=== PATIENT | female | born 1960 | race Caucasian/White ===

== ENCOUNTER 2016-11-15 07:13 | Emergency (ER) | payer BC ==
[2016-11-15 07:31] VITALS: BP 157/76
--- NOTE | 2016-11-15 07:57 | UC ---
Skin Complaint HPI - HPI Summary HPI Summary: Skin rash for the past few days under belly fold and left inguinal canal. DM has bee in the range of 160s. no fever or chills. it is itchy and tender. - History of Current Complaint Chief Complaint: UCSkin Time Seen by Provider: 11/15/16 07:40 Stated Complaint: SKIN COMPLAINT Hx Obtained From: Patient Hx Last Menstrual Period: 2007 Onset/Duration: Gradual Onset Skin Exposure Onset/Duration: Days Ago Onset Severity: Mild Current Severity: Moderate Location: Discrete Character: Pruritus, Pain Aggravating: Wet Conditions, Humidity, Touch Associated Signs & Symptoms: Positive: Rash. Negative: Nausea, Vomiting, Numbness, Diaphoresis, Weakness, Shivering, Fever, Red Streaks, Joint Swelling Related History: Diabetes - Allergy/Home Medications Allergies/Adverse Reactions: Allergies Allergy/AdvReac Type Severity Reaction Status Date / Time No Known Allergies Allergy Verified 11/15/16 07:20 Home Medications: Home Medications Cholecalciferol TAB* [Vitamin D TAB*] 1,000 unit PO DAILY 11/15/16 [History Confirmed 11/15/16] Homeopathic Products [Azo Yeast Plus] 1 tab PO 11/15/16 [History] Review of Systems All Other Systems Reviewed And Are Negative: Yes PMH/Surg Hx/FS Hx/Imm Hx Endocrine History Of: Reports: Diabetes, Dyslipidemia Denies: Thyroid Disease, Hyperthyroidism, Hypothyroidism Cardiovascular History Of: Reports: Hypertension Denies: Cardiac Disorders, Pacemaker/ICD, Myocardial Infarction, Congestive Heart Failure, Atrial Fibrillation, Deep Vein Thrombosis, Bleeding Disorders Respiratory History Of: Reports: Asthma Denies: COPD GI/ History Of: Reports: Gastroesophageal Reflux Denies: Ulcer, Gastrointestinal Bleed, Gall Bladder Disease, Kidney Stones, Diverticulitis, Renal Disease, Urosepsis Neurological History Of: Denies: TIA, CVA, Dementia, Seizures, Migraine Psychological History Of: Denies: Anxiety, Depression, Bipolar Disorder, Schizophrenia, Post Traumatic Stress Disorder Cancer History Of: Reports: Breast Cancer Denies: Lung Cancer, Colorectal Cancer, Prostate Cancer, Cervical Cancer Other History Of: Negative For: HIV, Hepatitis B, Hepatitis C, Anticoagulant Therapy - Surgical History Surgical History: Yes Surgery Procedure, Year, and Place: bilateral mastectomy 07/2007, right carpal tunnel, vein stripping left leg - Family History Known Family History: Positive: None - Social History Alcohol Use: None Substance Use Type: None Smoking Status (MU): Current Every Day Smoker Type: Cigarettes Amount Used/How Often: 1 1/2 ppd Household Exposure Type: Cigarettes - Immunization History Most Recent Influenza Vaccination: 2016 Most Recent Tetanus Shot: unk Most Recent Pneumonia Vaccination: none Physical Exam Triage Information Reviewed: Yes Appearance: Well-Appearing, No Pain Distress, Obese Vital Signs: Initial Vital Signs Temp 97.8 F 11/15/16 07:23 Pulse 94 11/15/16 07:23 Resp 18 11/15/16 07:23 BP 157/76 11/15/16 07:23 Pulse Ox 98 11/15/16 07:23 Vital Signs Reviewed: Yes Eye Exam: Normal Eyes: Positive: Conjunctiva Clear. Negative: Conjunctiva Inflamed ENT Exam: Normal Neck exam: Normal Neck: Positive: Supple, Nontender. Negative: No Lymphadenopathy Respiratory Exam: Normal Respiratory: Positive: Chest non-tender, Lungs clear, Normal breath sounds, No respiratory distress, No accessory muscle use. Negative: Respiratory distress Cardiovascular Exam: Normal Cardiovascular: Positive: RRR, No Murmur, Pulses Normal Abdominal Exam: Normal Abdomen Description: Positive: Nontender, No Organomegaly, Soft Musculoskeletal: Positive: Strength Intact, ROM Intact, No Edema Neurological Exam: Normal Neurological: Positive: Alert, Muscle Tone Normal. Negative: Fatigued Psychological Exam: Normal Psychological: Positive: Normal Response To Family Skin: Positive: rashes - under abd fold and L inguinal canal pink symmetric rash non raised. no streaking or induration. Course/Dx - Diagnoses Provider Diagnoses: fungal skin rash. Discharge - Discharge Plan Condition: Good Disposition: HOME Prescriptions: Fluconazole 100 MG TAB* [Diflucan 100 MG TAB*] 100 mg PO DAILY #3 tab Nystatin CREAM* [Nystatin Cream*] 1 applic TOPICAL TID #15 tube Patient Education Materials: Antifungals (On the skin) Referrals: Brady Hicks [Primary Care Provider] - 2 Days
== END 2016-11-15 08:00 | disposition home or self-care (01) ==
LOC: UCCORT 07:13
DX: B35.9 Dermatophytosis, unspecified (principal); E11.9 Type 2 diabetes mellitus without complications; E78.5 Hyperlipidemia, unspecified; I10 Essential (primary) hypertension; J45.909 Unspecified asthma, uncomplicated; K21.9 Gastro-esophageal reflux disease without esophagitis; Z85.3 Personal history of malignant neoplasm of breast; F17.210 Nicotine dependence, cigarettes, uncomplicated
CPT/HCPCS: 99212; G0463

== ENCOUNTER 2016-12-05 14:40 | Emergency (ER) | payer BC ==
[2016-12-05 15:32] VITALS: BP 144/74
--- NOTE | 2016-12-05 15:56 | UC ---
Throat Pain/Nasal Yunier HPI - HPI Summary HPI Summary: ONE WEEK OF CONGESTION. SORE THROAT, EAR ACHE SINUS PRESSURE WORSE SINCE YESTERDAY. NO FEVER. - History of Current Complaint Chief Complaint: UCGeneralIllness Stated Complaint: SORE THROAT,FEVER Time Seen by Provider: 12/05/16 15:30 Hx Obtained From: Patient Hx Last Menstrual Period: 2007 Onset/Duration: Gradual Onset, Lasting Days, Worse Since - YESTERDAY Severity: Moderate Pain Intensity: 7 Pain Scale Used: 0-10 Numeric Cough: Productive Associated Signs & Symptoms: Positive: Hoarseness, Sinus Discomfort, Nasal Discharge - Epiglottits Risk Factors Epiglottis Risk Factors: Negative - Allergies/Home Medications Allergies/Adverse Reactions: Allergies Allergy/AdvReac Type Severity Reaction Status Date / Time No Known Allergies Allergy Verified 12/05/16 15:32 PMH/Surg Hx/FS Hx/Imm Hx Previously Healthy: Yes Endocrine History Of: Reports: Diabetes, Dyslipidemia Denies: Thyroid Disease, Hyperthyroidism, Hypothyroidism Cardiovascular History Of: Reports: Hypertension Denies: Cardiac Disorders, Pacemaker/ICD, Myocardial Infarction, Congestive Heart Failure, Atrial Fibrillation, Deep Vein Thrombosis, Bleeding Disorders Respiratory History Of: Reports: Asthma Denies: COPD GI/ History Of: Reports: Gastroesophageal Reflux Denies: Ulcer, Gastrointestinal Bleed, Gall Bladder Disease, Kidney Stones, Diverticulitis, Renal Disease, Urosepsis Neurological History Of: Denies: TIA, CVA, Dementia, Seizures, Migraine Psychological History Of: Denies: Anxiety, Depression, Bipolar Disorder, Schizophrenia, Post Traumatic Stress Disorder Cancer History Of: Reports: Breast Cancer Denies: Lung Cancer, Colorectal Cancer, Prostate Cancer, Cervical Cancer Other History Of: Negative For: HIV, Hepatitis B, Hepatitis C, Anticoagulant Therapy - Surgical History Surgical History: Yes Surgery Procedure, Year, and Place: bilateral mastectomy 07/2007, right carpal tunnel, vein stripping left leg - Family History Known Family History: Positive: None - Social History Occupation: Employed Full-time Lives: With Family Alcohol Use: None Substance Use Type: None Smoking Status (MU): Current Every Day Smoker Type: Cigarettes Amount Used/How Often: 1 1/2 ppd Household Exposure Type: Cigarettes Cessation Counseling: Patient Advised to Stop - Immunization History Most Recent Influenza Vaccination: 2015 Most Recent Tetanus Shot: unk Most Recent Pneumonia Vaccination: none Review of Systems Constitutional: Negative Skin: Negative ENT: Sore Throat, Ear Ache, Nasal Discharge Respiratory: Negative Cardiovascular: Negative Gastrointestinal: Negative Genitourinary: Negative Motor: Negative Neurovascular: Negative Musculoskeletal: Negative Neurological: Negative Psychological: Negative All Other Systems Reviewed And Are Negative: Yes Physical Exam Triage Information Reviewed: Yes Appearance: No Pain Distress, Well-Nourished, Ill-Appearing Vital Signs: Initial Vital Signs Temp 97.5 F 12/05/16 15:28 Pulse 109 12/05/16 15:28 Resp 16 12/05/16 15:28 BP 144/74 12/05/16 15:28 Pulse Ox 95 12/05/16 15:28 Vital Signs Reviewed: Yes Eye Exam: Normal ENT: Positive: Hearing grossly normal, Pharynx normal, TM bulging, TM dull, TM red Dental Exam: Normal Neck exam: Normal Neck: Positive: Supple, Nontender, No Lymphadenopathy Respiratory Exam: Normal Respiratory: Positive: Chest non-tender, Lungs clear, Normal breath sounds, No respiratory distress, No accessory muscle use Cardiovascular Exam: Normal Cardiovascular: Positive: RRR, No Murmur, Pulses Normal, Brisk Capillary Refill Abdominal Exam: Normal Abdomen Description: Positive: Nontender, No Organomegaly Musculoskeletal Exam: Normal Neurological Exam: Normal Psychological Exam: Normal Skin Exam: Normal Throat Pain/Nasal Course/Dx - Differential Dx/Diagnosis Differential Diagnosis/HQI/PQRI: Pharyngitis, Sinusitis, Tonsillitis, URI Provider Diagnoses: SINUSITIS Discharge - Discharge Plan Condition: Stable Disposition: HOME Prescriptions: Amoxicillin/Clavulanate TAB* [Augmentin TAB 875*] 875 mg PO BID #20 tab Patient Education Materials: Pharyngitis (ED), Sinusitis (ED) Forms: *Work Release Referrals: Brady Hicks [Primary Care Provider] -
== END 2016-12-05 15:51 | disposition home or self-care (01) ==
LOC: UCCORT 14:40
DX: J32.9 Chronic sinusitis, unspecified (principal); E11.9 Type 2 diabetes mellitus without complications; E78.5 Hyperlipidemia, unspecified; I10 Essential (primary) hypertension; J45.909 Unspecified asthma, uncomplicated; K21.9 Gastro-esophageal reflux disease without esophagitis; Z85.3 Personal history of malignant neoplasm of breast; Z90.13 Acquired absence of bilateral breasts and nipples; F17.210 Nicotine dependence, cigarettes, uncomplicated
CPT/HCPCS: 99212; G0463

== ENCOUNTER 2018-08-27 09:10 | Emergency (ER) | payer BC ==
[2018-08-27 11:44] VITALS: BP 129/65
--- NOTE | 2018-08-27 11:59 | UC ---
Throat Pain/Nasal Yunier HPI - HPI Summary HPI Summary: 58-year-old female presents with 4 day history of sore throat, mild nasal congestion, bilateral ear pain, and occasional nonproductive cough. States she was treated approximately 2 weeks ago for a bilateral ear infection with a ten- day course of Augmentin. Denies fever, chills, dysphagia, chest pain, shortness of breath, nausea, vomiting, or diarrhea. - History of Current Complaint Chief Complaint: UCGeneralIllness Stated Complaint: ST,SPOTS IN THROAT Time Seen by Provider: 08/27/18 11:39 Hx Obtained From: Patient Hx Last Menstrual Period: 2007 Pain Intensity: 6 - Allergies/Home Medications Allergies/Adverse Reactions: Allergies Allergy/AdvReac Type Severity Reaction Status Date / Time No Known Allergies Allergy Verified 08/27/18 11:37 Home Medications: Home Medications Ibuprofen TAB* [Motrin TAB* 800 MG] 800 mg PO Q6H PRN 08/27/18 [History Confirmed 08/27/18] glipiZIDE TAB* [Glucotrol TAB*] 5 mg PO DAILY 08/27/18 [History Confirmed ] PMH/Surg Hx/FS Hx/Imm Hx - Additional Past Medical History Additional PMH: Restless leg syndrome Endocrine History: Diabetes, Dyslipidemia Cardiovascular History: Hypertension Respiratory History: Asthma GI/ History: Gastroesophageal Reflux Cancer History: Breast Cancer Other History Of: Negative For: HIV, Hepatitis B, Hepatitis C, Anticoagulant Therapy - Surgical History Surgical History: Yes Surgery Procedure, Year, and Place: bilateral mastectomy 07/2007, right carpal tunnel, vein stripping left leg. tubal - Family History Known Family History: Positive: Hypertension, Diabetes - Social History Occupation: Employed Full-time Lives: Alone Alcohol Use: None Substance Use Type: None Smoking Status (MU): Current Every Day Smoker Type: Cigarettes Amount Used/How Often: 1 ppd Household Exposure Type: Cigarettes - Immunization History Most Recent Influenza Vaccination: not yet 2017 Most Recent Tetanus Shot: unk Most Recent Pneumonia Vaccination: none Review of Systems All Other Systems Reviewed And Are Negative: Yes Constitutional: Negative: Fever, Chills Skin: Negative: Rash Eyes: Negative: Drainage, Eye Redness ENT: Positive: Sore Throat, Ear Ache, Nasal Discharge. Negative: Sinus Congestion, Sinus Pain/Tenderness Respiratory: Positive: Cough. Negative: Shortness Of Breath Cardiovascular: Negative: Palpitations, Chest Pain Gastrointestinal: Negative: Abdominal Pain, Vomiting, Diarrhea, Nausea Musculoskeletal: Positive: Negative Neurological: Positive: Negative Is Patient Immunocompromised?: No Physical Exam - Summary Physical Exam Summary: GENERAL APPEARANCE: Well developed, obese, alert and cooperative, and appears to be in no acute distress. EYES: Conjunctiva clear. No drainage. Vision is grossly intact. EARS: External auditory canals and tympanic membranes clear, hearing grossly intact. NOSE: Mild nasal congestion. THROAT: Mild pharyngeal erythema with cobblestoning. No tonsilar inflammation, swelling, exudate, or lesions. NECK: Neck supple, non-tender without lymphadenopathy. CARDIAC: Normal S1 and S2. No S3, S4 or murmurs. Rhythm is regular. There is no peripheral edema, cyanosis or pallor. Extremities are warm and well perfused. Capillary refill is less than 2 seconds. LUNGS: Clear to auscultation without rales, rhonchi, wheezing or diminished breath sounds. ABDOMEN: Positive bowel sounds. Soft, nondistended, nontender. No guarding or rebound. No masses or hepatosplenomegally. MUSKULOSKELETAL: ROM intact to all extremities. No joint erythema or tenderness. Normal muscular development. Normal gait. SKIN: Skin normal color, texture and turgor with no lesions or eruptions. Triage Information Reviewed: Yes Vital Signs: Initial Vital Signs Temp 98.6 F 08/27/18 11:37 Pulse 99 08/27/18 11:37 Resp 18 08/27/18 11:37 BP 129/65 08/27/18 11:37 Pulse Ox 95 08/27/18 11:37 Vital Signs Reviewed: Yes Diagnostics - Laboratory Diagnostic Studies Completed/Ordered: Rapid strep negative. Throat Pain/Nasal Course/Dx - Course Course Of Treatment: 58-year-old female presents with 4 day history of sore throat, mild nasal congestion, bilateral ear pain, and occasional nonproductive cough. States she was treated approximately 2 weeks ago for a bilateral ear infection with a ten-day course of Augmentin. Denies fever, chills, dysphagia, chest pain, shortness of breath, nausea, vomiting, or diarrhea. Afebrile. Vital signs stable. Exam reveals dental female no acute distress with mild nasal congestion, normal bilateral TMs, mild pharyngeal erythema with cobblestoning, clear bilateral breath sounds, occasional dry nonproductive cough , and otherwise unremarkable exam. Rapid strep negative. Recommending symptomatic treatment for a viral upper respiratory infection. She is to follow -up with her primary care provider in 7 days if symptoms do not improve. Anticipatory guidance and warning symptoms were reviewed with the patient. Verbalizes understanding and agrees with plan of care. - Differential Dx/Diagnosis Differential Diagnosis/HQI/PQRI: Otitis Media, Peritonsillar Abscess, Pharyngitis, Sinusitis, Tonsillitis, URI Provider Diagnosis: Viral URI with cough Discharge - Sign-Out/Discharge Documenting (check all that apply): Patient Departure All imaging exams completed and their final reports reviewed: No Studies - Discharge Plan Condition: Stable Disposition: HOME Patient Education Materials: Upper Respiratory Infection (ED) Referrals: Brady Hicks [Primary Care Provider] - 7 Days (If no improvement in symptoms.) Additional Instructions: Your history and exam are consistent with a viral upper respiratory infection. Viral infections do not respond to antibiotics and are limited to the treatment of symptoms. Viral infections typically run their course in 7-10 days. Drink plenty of fluids to avoid dehydration especially if you are running any fever. Use a saline rinse kit such as Neti Pot or NeilMed at least twice a day to help thin secretions and promote drainage of the sinuses. Take over the counter acetaminophen (Tylenol) according to directions as needed for pain or fever. Use salt water gargles several times a day if you have a sore throat. You may also use Chloraseptic spray or Cepacol lonzenges according to directions which contain a numbing medication and can provide some temporary relief from your sore throat. Follow up with your primary care provider in 7 days if symptoms persist. Seek immediate medical attention in the emergency room if you have fever greater than 100.5 F despite taking acetaminophen or ibuprofen, have chest pain , difficulty breathing, are unable to swallow, or have any worsening of symptoms. - Billing Disposition and Condition Condition: STABLE Disposition: Home
== END 2018-08-27 12:13 | disposition home or self-care (01) ==
LOC: UCCORT 09:10
DX: J06.9 Acute upper respiratory infection, unspecified (principal); R05 Cough; E11.9 Type 2 diabetes mellitus without complications; I10 Essential (primary) hypertension; J45.909 Unspecified asthma, uncomplicated; H66.93 Otitis media, unspecified, bilateral; F17.210 Nicotine dependence, cigarettes, uncomplicated; Z79.84 Long term (current) use of oral hypoglycemic drugs
CPT/HCPCS: 87651; 99211; G0463

== ENCOUNTER 2018-08-30 09:43 | Emergency (ER) | payer BC ==
[2018-08-30 10:43] VITALS: BP 149/62
--- NOTE | 2018-08-30 11:26 | UC ---
Throat Pain/Nasal Yunier HPI - HPI Summary HPI Summary: 58-year-old woman comes to clinic with a chief complaint of upper respiratory tract infection and sinusitis symptoms for greater than 10 days. She has a lot of sinus pressure the rhinorrhea is green. About a month ago she was treated with Augmentin for similar symptoms and got better. She gets sick again. No chest congestion she does have some postnasal drip and sore throat. Over-the- counter medicines help some with the symptoms. Patient is also recently had some left eye discharge and redness. No trauma to the eye no pain in the eye.B/ L ear pain. - History of Current Complaint Chief Complaint: UCGeneralIllness Stated Complaint: CONGESTION/PANIAGUA Time Seen by Provider: 08/30/18 11:17 Hx Last Menstrual Period: 2007 Pain Intensity: 6 - Allergies/Home Medications Allergies/Adverse Reactions: Allergies Allergy/AdvReac Type Severity Reaction Status Date / Time No Known Allergies Allergy Verified 08/30/18 10:40 PMH/Surg Hx/FS Hx/Imm Hx Previously Healthy: Yes Endocrine History: Diabetes, Dyslipidemia Cardiovascular History: Hypertension GI/ History: Gastroesophageal Reflux Other History Of: Negative For: HIV, Hepatitis B, Hepatitis C, Anticoagulant Therapy - Surgical History Surgical History: Yes Surgery Procedure, Year, and Place: bilateral mastectomy 07/2007, right carpal tunnel, vein stripping left leg. tubal - Family History Known Family History: Positive: None, Hypertension, Diabetes - Social History Alcohol Use: None Substance Use Type: None Smoking Status (MU): Current Every Day Smoker Type: Cigarettes Amount Used/How Often: 1 ppd Household Exposure Type: Cigarettes - Immunization History Most Recent Influenza Vaccination: not yet 2017 Most Recent Tetanus Shot: unk Most Recent Pneumonia Vaccination: none Review of Systems All Other Systems Reviewed And Are Negative: Yes Constitutional: Positive: Negative Skin: Positive: Negative Eyes: Positive: Drainage - left, Eye Redness - left ENT: Positive: Sore Throat, Ear Ache, Nasal Discharge, Sinus Congestion, Sinus Pain/Tenderness Respiratory: Positive: Negative Cardiovascular: Positive: Negative Gastrointestinal: Positive: Negative Motor: Positive: Negative Neurovascular: Positive: Negative Musculoskeletal: Positive: Negative Neurological: Positive: Negative Psychological: Positive: Negative Is Patient Immunocompromised?: No Physical Exam Triage Information Reviewed: Yes Appearance: No Pain Distress, Well-Nourished, Ill-Appearing - mild Vital Signs: Initial Vital Signs Temp 98.2 F 08/30/18 10:38 Pulse 109 08/30/18 10:38 Resp 18 08/30/18 10:38 BP 149/62 08/30/18 10:38 Pulse Ox 98 08/30/18 10:38 Vital Signs Reviewed: Yes Eyes: Positive: Conjunctiva Inflamed - left, Discharge - left, Other: - perrla/ eomi ENT: Positive: Pharyngeal erythema, Nasal congestion, Nasal drainage, TM bulging - left, TM dull - left Neck exam: Normal Neck: Positive: Supple Respiratory: Positive: Lungs clear, Normal breath sounds, No respiratory distress Cardiovascular: Positive: Tachycardia Musculoskeletal Exam: Normal Musculoskeletal: Positive: Strength Intact, ROM Intact Neurological Exam: Normal Neurological: Positive: Alert, Muscle Tone Normal Psychological Exam: Normal Psychological: Positive: Age Appropriate Behavior Skin Exam: Normal Throat Pain/Nasal Course/Dx - Differential Dx/Diagnosis Provider Diagnosis: Sinusitis, Conjunctivitis Discharge - Sign-Out/Discharge Documenting (check all that apply): Patient Departure All imaging exams completed and their final reports reviewed: No Studies - Discharge Plan Condition: Stable Disposition: HOME Prescriptions: Amoxicillin/Clavulanate TAB* [Augmentin TAB 875*] 875 mg PO BID #20 tab Tobramycin 0.3% OPHTH.GABBY* 1 drop LEFT EYE Q4H #1 btl Patient Education Materials: Sinusitis (ED) Referrals: Brady Hicks [Primary Care Provider] - Additional Instructions: FOLLOW UP WITH YOUR DOCTOR IF NOT COMPLETELY IMPROVED. GET RECHECKED FOR ANY WORSENING OF YOUR CONDITION OR QUESTIONS OR CONCERNS. - Billing Disposition and Condition Condition: STABLE Disposition: Home
== END 2018-08-30 11:31 | disposition home or self-care (01) ==
LOC: UCCORT 09:43
DX: J32.9 Chronic sinusitis, unspecified (principal); H10.9 Unspecified conjunctivitis; H92.03 Otalgia, bilateral; I10 Essential (primary) hypertension; F17.210 Nicotine dependence, cigarettes, uncomplicated
CPT/HCPCS: 99212; G0463

== ENCOUNTER 2018-09-25 09:08 | Emergency (ER) | payer BC ==
[2018-09-25 09:48] VITALS: BP 149/68
--- NOTE | 2018-09-25 10:09 | UC ---
Skin Complaint HPI - HPI Summary HPI Summary: 58-year-old female presents with complaints of progressively worsening pruritic , erythematous, perioral rash for the past week. States symptoms began with dry chapped lips for which she was frequently using lip balm. Denies fever, chills, swelling of the lips, tongue, or throat, difficulty swallowing, difficulty breathing, or drainage. - History of Current Complaint Chief Complaint: UCSkin Time Seen by Provider: 09/25/18 10:01 Stated Complaint: SKIN CONCERN Hx Obtained From: Patient Hx Last Menstrual Period: 2007 Pain Intensity: 4 - Allergy/Home Medications Allergies/Adverse Reactions: Allergies Allergy/AdvReac Type Severity Reaction Status Date / Time No Known Allergies Allergy Verified 09/25/18 09:43 Home Medications: Home Medications amLODIPine TAB* [Norvasc 5 mg TAB*] 10 mg PO DAILY 09/25/18 [History Confirmed 09/25/18] metFORMIN* [Glucophage 500 MG TAB *] 500 mg PO BID 09/25/18 [History Confirmed 09/25/18] PMH/Surg Hx/FS Hx/Imm Hx Endocrine History: Diabetes, Dyslipidemia Cardiovascular History: Hypertension GI/ History: Gastroesophageal Reflux Cancer History: Breast Cancer Other History Of: Negative For: HIV, Hepatitis B, Hepatitis C, Anticoagulant Therapy - Surgical History Surgical History: Yes Surgery Procedure, Year, and Place: bilateral mastectomy 07/2007, right carpal tunnel, vein stripping left leg. tubal - Family History Known Family History: Positive: Hypertension, Diabetes - Social History Occupation: Employed Full-time Lives: Alone Alcohol Use: None Substance Use Type: None Smoking Status (MU): Heavy Every Day Tobacco Smoker Type: Cigarettes Amount Used/How Often: 1 1/2 PPD Length of Time of Smoking/Using Tobacco: Since Age 14 Household Exposure Type: Cigarettes - Immunization History Most Recent Influenza Vaccination: not yet 2017 Most Recent Tetanus Shot: unk Most Recent Pneumonia Vaccination: none Review of Systems All Other Systems Reviewed And Are Negative: Yes Constitutional: Negative: Fever, Chills Skin: Positive: Other - See HPI Eyes: Negative: Drainage, Eye Redness ENT: Negative: Sore Throat, Ear Ache, Nasal Discharge, Sinus Congestion, Sinus Pain/Tenderness Respiratory: Negative: Shortness Of Breath, Cough Cardiovascular: Positive: Negative Gastrointestinal: Positive: Negative Genitourinary: Positive: Negative Musculoskeletal: Positive: Negative Neurological: Positive: Negative Is Patient Immunocompromised?: No Physical Exam - Summary Physical Exam Summary: GENERAL APPEARANCE: Well developed, obese, alert and cooperative, and appears to be in no acute distress. EYES: Conjunctiva clear. No drainage. PERRL, EOM intact. Vision is grossly intact. EARS: External auditory canals and tympanic membranes clear, hearing grossly intact. NOSE: No nasal discharge. THROAT: Pharynx normal No tonsilar inflammation, swelling, exudate, or lesions. Uvula midline. Oral cavity normal. Teeth and gingiva in good general condition. No swelling of the lips, tongue, or throat. Airway intact. NECK: Neck supple, non-tender without lymphadenopathy. CARDIAC: Normal S1 and S2. No S3, S4 or murmurs. Rhythm is regular. There is no peripheral edema, cyanosis or pallor. Extremities are warm and well perfused. Capillary refill is less than 2 seconds. Peripheral pulses intact. LUNGS: Clear to auscultation without rales, rhonchi, wheezing or diminished breath sounds. ABDOMEN: Positive bowel sounds. Soft, nondistended, nontender. No guarding or rebound. No masses or hepatosplenomegally. MUSKULOSKELETAL: ROM intact to all extremities. No joint erythema or tenderness. Normal muscular development. Normal gait. SKIN: Pruritic, scaly, erythematous perioral rash without discharge or edema. No induration, fluctuance, or drainage. Triage Information Reviewed: Yes Vital Signs: Initial Vital Signs Temp 98.1 F 09/25/18 09:41 Pulse 88 09/25/18 09:41 Resp 18 09/25/18 09:41 BP 149/68 09/25/18 09:41 Pulse Ox 99 09/25/18 09:41 Vital Signs Reviewed: Yes Course/Dx - Course Course Of Treatment: 58-year-old female presents with complaints of progressively worsening pruritic, erythematous, perioral rash for the past week. States symptoms began with dry chapped lips for which she was frequently using lip balm. Denies fever, chills, swelling of the lips, tongue, or throat, difficulty swallowing, difficulty breathing, or drainage. Afebrile. Vital signs stable. Exam reveals an adult female in no acute distress with an erythematous, scaly, perioral rash most prevalent below her lower lip. No drainage, induration, or fluctuance is noted. No swelling of the lips, tongue, or throat. Exam is consistent with an allergic contact cheilitis likely from the lip although she was using although I cannot fully rule out the possibility of another cause such as a possible tinea infection. Will have patient start using triamcinolone cream to the affected area twice a day. She is to follow- up with her primary care provider in 3-5 days for recheck of her symptoms. Anticipatory guidance and warning symptoms were reviewed with the patient. Verbalizes understanding and agrees with plan of care. - Differential Diagnoses - Skin Complaint Differential Diagnoses: Allergic Reaction, Angioedema, Cellulitis, Contact Dermatitis, Impetigo, Local Allergic Reaction, MRSA, Tinea - Diagnoses Provider Diagnosis: Cheilitis Discharge - Sign-Out/Discharge Documenting (check all that apply): Patient Departure All imaging exams completed and their final reports reviewed: No Studies - Discharge Plan Condition: Stable Disposition: HOME Prescriptions: Triamcinolone 0.5% CREAM(NF) [Triamcinolone 0.5% CREAM*] 1 applic TOPICAL BID # 1 tube Patient Education Materials: Contact Dermatitis (ED) Referrals: Brayd Hicks [Primary Care Provider] - 3 Days (Follow up in 3-5 days for recheck of symptoms.) Additional Instructions: Start using triamcinolone cream. Apply a thin layer to the affected areas twice a day. Do not use for more than 2 weeks. Avoid using lip balms containing flavors, fragrances, preservatives, propolis, or lanolin as these can sometimes cause irritation. Follow up with your primary care provider in 3-5 days for recheck of symptoms. Seek immediate medical attention in the emergency room if you develop fever greater than 100.5 F, have swelling of the lips, tongue, or throat, difficulty swallowing, difficulty breathing, or any worsening of symptoms. - Billing Disposition and Condition Condition: STABLE Disposition: Home - Attestation Statements Provider Attestation: Per institutional requirements, I have reviewed the chart, however, I was not consulted specifically or made aware of this patient by the midlevel provider. I did not personally evaluate, interact with , or disposition this patient.
== END 2018-09-25 10:32 | disposition home or self-care (01) ==
LOC: UCCORT 09:08
DX: K13.0 Diseases of lips (principal); E11.9 Type 2 diabetes mellitus without complications; I10 Essential (primary) hypertension; E66.9 Obesity, unspecified; F17.210 Nicotine dependence, cigarettes, uncomplicated; Z79.4 Long term (current) use of insulin; Z79.899 Other long term (current) drug therapy
CPT/HCPCS: 99212; G0463

== ENCOUNTER 2018-11-07 09:33 | Emergency (ER) | payer BC ==
[2018-11-07 10:33] VITALS: BP 130/68
--- NOTE | 2018-11-07 10:59 | UC ---
Complaint Female HPI - HPI Summary HPI Summary: Pt presents with c/o sudden onset of urinary frequency, urgency and dysuria X 3 days. - History Of Current Complaint Chief Complaint: UCGU Stated Complaint: URINARY COMPLAINT Time Seen by Provider: 11/07/18 10:22 Hx Obtained From: Patient Hx Last Menstrual Period: 2007 ?: No Onset/Duration: Sudden Onset, Lasting Days, Still Present Timing: Constant Severity Initially: Mild Severity Currently: Mild Pain Intensity: 4 Pain Scale Used: 0-10 Numeric Character: Dull, Burning Aggravating Factor(s): Urination Alleviating Factor(s): Nothing Associated Signs And Symptoms: Positive: Negative - Risk Factors Ectopic Risk Factor: Negative Ovarian Torsion Risk Factor: Negative - Allergies/Home Medications Allergies/Adverse Reactions: Allergies Allergy/AdvReac Type Severity Reaction Status Date / Time No Known Allergies Allergy Verified 11/07/18 10:26 Home Medications: Home Medications Cranberry Conc/C/Bacill Coag [Azo Cranberry Tablet] 1 tab PO TID PRN 11/07/18 [ History Confirmed 11/07/18] PMH/Surg Hx/FS Hx/Imm Hx Previously Healthy: Yes Other History Of: Negative For: HIV, Hepatitis B, Hepatitis C, Anticoagulant Therapy - Surgical History Surgical History: Yes Surgery Procedure, Year, and Place: bilateral mastectomy 07/2007, right carpal tunnel, vein stripping left leg. tubal - Family History Known Family History: Positive: None, Hypertension, Diabetes - Social History Occupation: Employed Full-time Lives: With Family Alcohol Use: None Substance Use Type: None Smoking Status (MU): Heavy Every Day Tobacco Smoker Type: Cigarettes Amount Used/How Often: 1 1/2 PPD Length of Time of Smoking/Using Tobacco: Since Age 14 Have You Smoked in the Last Year: Yes Household Exposure Type: Cigarettes - Immunization History Most Recent Influenza Vaccination: not yet 2017 Most Recent Tetanus Shot: unk Most Recent Pneumonia Vaccination: none Vaccination Up to Date: No Review of Systems All Other Systems Reviewed And Are Negative: Yes Constitutional: Positive: Fatigue Skin: Positive: Negative Eyes: Positive: Negative ENT: Positive: Negative Respiratory: Positive: Negative Cardiovascular: Positive: Negative Gastrointestinal: Positive: Negative Genitourinary: Positive: Dysuria, Frequency, Urgency Motor: Positive: Negative Neurovascular: Positive: Negative Musculoskeletal: Positive: Negative Neurological: Positive: Negative Psychological: Positive: Negative Is Patient Immunocompromised?: No Physical Exam Triage Information Reviewed: Yes Appearance: Well-Appearing, Obese Vital Signs: Initial Vital Signs Temp 97.6 F 11/07/18 10:29 Pulse 97 11/07/18 10:29 Resp 18 11/07/18 10:29 BP 130/68 11/07/18 10:29 Pulse Ox 97 11/07/18 10:29 Vital Signs Reviewed: Yes Eye Exam: Normal ENT: Positive: Hearing grossly normal Dental Exam: Normal Neck exam: Normal Respiratory Exam: Normal Cardiovascular Exam: Normal Abdominal Exam: Normal Musculoskeletal Exam: Normal Neurological Exam: Normal Psychological Exam: Normal Skin Exam: Normal Complaint Female Dx - Differential Dx/Diagnosis Differential Diagnosis/HQI/PQRI: Ureteral Stone, Urinary Tract Infection Provider Diagnosis: UTI (urinary tract infection) Discharge - Sign-Out/Discharge Documenting (check all that apply): Patient Departure All imaging exams completed and their final reports reviewed: No Studies - Discharge Plan Condition: Stable Disposition: HOME Prescriptions: Cephalexin CAP* [Keflex 500 CAP*] 500 mg PO Q8H #21 cap Patient Education Materials: Urinary Tract Infection in Women (ED) Referrals: Brady Hicks [Primary Care Provider] - If Needed - Billing Disposition and Condition Condition: STABLE Disposition: Home - Attestation Statements Provider Attestation: Per institutional requirements, I have reviewed the chart, however, I was not consulted specifically or made aware of this patient by the midlevel provider. I did not personally evaluate, interact with , or disposition this patient.
--- NOTE | 2018-11-09 07:13 | UC ---
- Progress Note Progress Note: +e. coli On cephalexin await sensitivity nakiaj 11/09/18 Course/Dx - Diagnoses Provider Diagnoses: UTI (urinary tract infection) Discharge - Sign-Out/Discharge Documenting (check all that apply): Post-Discharge Follow Up All imaging exams completed and their final reports reviewed: No Studies - Discharge Plan Condition: Stable Disposition: HOME Prescriptions: Cephalexin CAP* [Keflex 500 CAP*] 500 mg PO Q8H #21 cap Patient Education Materials: Urinary Tract Infection in Women (ED) Referrals: Brady Hicks [Primary Care Provider] - If Needed - Billing Disposition and Condition Condition: STABLE Disposition: Home
== END 2018-11-07 10:52 | disposition home or self-care (01) ==
LOC: UCCORT 09:33
DX: N39.0 Urinary tract infection, site not specified (principal); B96.20 Unspecified Escherichia coli [E. coli] as the cause of diseases classified elsewhere; R53.83 Other fatigue; F17.210 Nicotine dependence, cigarettes, uncomplicated
CPT/HCPCS: 81003; 87077; 87086; 87186; 99212; G0463